=== PATIENT | male | born 1995 | race Two or more races ===

== ENCOUNTER 2023-11-12 18:51 | Inpatient (IN) | payer MEDICAID, OTHER ==
[~2023-11-12] VITALS: Ht 190.5 cm; Wt 92.8 kg
[~2023-11-12 18:51] MED LIST: BENZ-247 PO; BUSP10TA23 PO; NICO-575 PO; OLAN20TA20 PO; VALP250C48 PO; [UNRECOGNIZED DRUG - CODE] PO
[2023-11-13 00:29] LABS: BASOPHILS % (AUTO) 0.5 % (0.0-2.0); EOSINOPHILS % (AUTO) 1.6 % (1.0-6.0); HEMATOCRIT 33.5 % (41-53); LYMPHOCYTES # (AUTO) 1.5 K/uL (1.0-4.8); LYMPHOCYTES % (AUTO) 21.1 % (22.0-44.0); MEAN CORPUSCULAR HEMOGLOBIN 31.1 pg (26.0-34.0); MEAN CORPUSCULAR HGB CONC 32.7 G/dL (31.0-37.0); MEAN CORPUSCULAR VOLUME 95 fL (80-100); MONOCYTES # (AUTO) 0.7 K/uL (0.1-1.0); MONOCYTES % (AUTO) 9.6 % (2.0-9.0); NEUTROPHILS # (AUTO) 4.8 K/uL (1.8-7.7); NEUTROPHILS % (AUTO) 67.2 % (40.0-70.0); PLATELET COUNT (AUTO) 199 K/uL (150-450); RED BLOOD CELL COUNT(AUTO) 3.53 MIL/uL (4.50-5.90); RED CELL DISTRIBUTION WIDTH 13.5 % (11.5-14.5); WHITE BLOOD COUNT (AUTO) 7.2 K/uL (4.5-11.0)
[2023-11-13 00:39] LABS: ANION GAP 0 mmol/L (8-16); CALCIUM, TOTAL 9.2 mg/dL (8.8-10.5); CARBON DIOXIDE 35 mmol/L (22-29); CHLORIDE 106 mmol/L (98-107); CREATININE 0.76 mg/dL (0.60-1.30); GLOMERULAR FILTR. RATE CALC > 60 mL/min (>60); GLUCOSE,RANDOM 91 mg/dL (70-110); POTASSIUM 4.7 mmol/L (3.5-5.1); SODIUM SERUM 141 mmol/L (136-145); UREA NITROGEN, BLOOD 20 mg/dL (7-18)
[2023-11-13 01:09] LABS: ALCOHOL, BLOOD (SERUM) < 3 mg/dL (0-10)
[2023-11-13] MEDS: LORazepam 2 MG TABLET PO ONE (02:50)
[2023-11-13] MEDS ORDERED: TUBERCULIN, PURIFIED PROTEIN DERIVATIVE 5 TU/0.1 ML SYRINGE ID ONE (12:30)
[2023-11-13] MEDS ORDERED: MAG HYDROX/ALUMINUM HYD/SIMETH ES 30 ML SUSPENSION UDCUP PO PRN (12:30)
[2023-11-13] MEDS ORDERED: LOPERAMIDE HCL 2 MG CAPSULE PO PRN (12:30)
[2023-11-13] MEDS ORDERED: ACETAMINOPHEN 325 MG TABLET PO PRN (12:30)
[2023-11-13] MEDS ORDERED: MAGNESIUM HYDROXIDE SUSPENSION 30 ML UDCUP PO PRN (12:30)
[2023-11-13] MEDS ORDERED: GuaiFENesin/D-METHORPHAN [SUGAR-FREE] 200-20MG/10 ML SYRUP UDCUP PO PRN (12:30)
[2023-11-13] MEDS ORDERED: PROMETHAZINE HCL 25 MG TABLET PO PRN (12:30)
[2023-11-13] MEDS ORDERED: HydrOXYzine PAMOATE 50 MG CAPSULE PO PRN (12:30)
[2023-11-13 16:15] LABS: COVID AG,FIA SOURCE NASAL SWAB
[2023-11-13 16:33] LABS: SARS-COV2 (COVID) ANTIGEN,FIA Negative (Negative)
[2023-11-13] MEDS: OLANZapine 5 MG RAPDIS TABLET PO SCH (21:30)
[2023-11-13] MEDS: MELATONIN 5 MG TABLET PO SCH (21:30)
[2023-11-13] MEDS: DIVALPROEX SODIUM 500 MG ER TABLET PO SCH (21:30)
[2023-11-13] MEDS: THIAMINE 100 MG TABLET PO SCH (21:31)
[2023-11-13 21:57] VITALS: BP 123/85; PULSE 85; RESP 18; TEMP 98.3
[2023-11-13] MEDS: ZOLPIDEM TARTRATE 10 MG TABLET PO PRN (22:31)
[2023-11-14 08:00] LABS: HEMOGLOBIN A1C 5.2 % (3.8-5.6)
[2023-11-14 08:05] VITALS: BP 129/78; PULSE 100; RESP 19; TEMP 98
[2023-11-14] MEDS: MULTIVITAMINS WITH MINERALS, THERAPEUTIC TABLET PO SCH (08:16)
[2023-11-14] MEDS: FOLIC ACID 1 MG TABLET PO SCH (08:16)
[2023-11-14 08:18] LABS: CHOL/HDL RATIO 2.5 (4.2-7.3); FREE T4 (FREE THYROXINE) 0.79 ng/dL (0.76-1.46); THYROID STIMULATING HORMONE 11.31 uIU/mL (0.36-3.74)
[2023-11-14] MEDS: BusPIRone HCL 5 MG TABLET PO SCH (12:19)
[2023-11-14] MEDS: LITHIUM CARBONATE 300 MG CAPSULE PO SCH (20:44)
[2023-11-14 21:12] VITALS: BP 122/75; PULSE 68; RESP 18; TEMP 98.1
[2023-11-15] MEDS: FLUoxetine HCL 20 MG CAPSULE PO SCH (08:24)
[2023-11-15 10:05] VITALS: BP 104/68; PULSE 105; RESP 18; TEMP 98
[2023-11-15] MEDS: OLANZapine 10 MG RAPDIS TABLET PO SCH (21:07)
[2023-11-15 21:29] VITALS: BP 124/76; PULSE 79; RESP 18; TEMP 97.3
[2023-11-16] MEDS: LORazepam 2 MG TABLET PO PRN (07:30)
[2023-11-16] MEDS: OLANZapine 5 MG RAPDIS TABLET PO PRN (07:31)
[2023-11-16 08:58] VITALS: BP 99/60; PULSE 103; RESP 17; TEMP 98
[2023-11-16] MEDS ORDERED: BUSP5TAB20 PO (11:44)
[2023-11-16] MEDS ORDERED: OLAN10TA26 PO (11:44)
[2023-11-16] MEDS ORDERED: MELA5TAB40 PO (11:44)
[2023-11-16] MEDS ORDERED: DIVA-153 PO (11:44)
[2023-11-16] MEDS ORDERED: LITH300C3 PO (11:44)
[2023-11-16] MEDS ORDERED: FLUO-418 PO (11:44)
== END 2023-11-16 15:00 | disposition home or self-care (01) | DRG 753 ==
LOC: EMS 18:51 → 3EC 11-13 21:09 → UNDOADMIN 11-13 21:09
PROVIDERS: ADMIT Psychiatry & Neurology Psychiatry; ATTEND Psychiatry & Neurology Psychiatry
PROC: GZHZZZZ Group Psychotherapy (ICD-10-PCS; principal; 2023-11-14)
PROC: GZ58ZZZ Individual Psychotherapy, Cognitive-Behavioral (ICD-10-PCS; 2023-11-14)
PROC: GZ51ZZZ Individual Psychotherapy, Behavioral (ICD-10-PCS; 2023-11-14)
PROC: GZ56ZZZ Individual Psychotherapy, Supportive (ICD-10-PCS; 2023-11-15)
DX: F31.30 Bipolar disorder, current episode depressed, mild or moderate severity, unspecified (principal); F25.9 Schizoaffective disorder, unspecified; R45.851 Suicidal ideations; D64.9 Anemia, unspecified; R79.89 Other specified abnormal findings of blood chemistry; Z20.822 Contact with and (suspected) exposure to COVID-19; F41.9 Anxiety disorder, unspecified; F70 Mild intellectual disabilities; F81.9 Developmental disorder of scholastic skills, unspecified; Z87.891 Personal history of nicotine dependence; Z91.148 Patient's other noncompliance with medication regimen for other reason; Z88.8 Allergy status to other drugs, medicaments and biological substances
CPT/HCPCS: 80048; 80061; 80164; 83036; 84439; 84443; 85025; 86592; 99285; G0480